=== PATIENT | female | born 1995 | race Two or more races ===

== ENCOUNTER 2017-09-21 05:05 | Emergency (ER) | payer OTHER ==
--- NOTE | 2017-09-21 05:32 | ER Document Report ---
Doctor's Note Notes: 09/21/17 05:31 I performed a quick triage evaluation the patient. Patient is 21 weeks presents with complaint of sensation that she feels that her right arm and hand are tight and she has pain that radiates from her wrist down her forearm and also some tingling into her fingers. She says affects all her fingers. On exam she has good pulses good capillary refill she is able to flex and extend her fingers but is hesitant to fully close her fist. 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 I suspect this most likely has -induced carpal tunnel however her right arm circumference does appear to be a little larger than the left and therefore I will order venous Doppler of the right arm.
--- NOTE | 2017-09-21 06:57 | ER Document Report ---
ED Hand/Wrist Injury - General Chief Complaint: Hand Pain Stated Complaint: ARM/HAND PAIN Time Seen by Provider: 09/21/17 06:19 Information source: Patient Notes: HPI-22 years old female presents today with pain and swelling over the right wrist hand and forearm, with a history of 21 week . 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 Has no history of any carpal tunnel syndrome but last few weeks when when she sleeps has to wake up frequently with numbness and tingling sensation over the right hand which resolves after shaking the hand. Associated with the pain. REVIEW OF SYSTEMS: CONSTITUTIONAL : Denies fever, chills, or sweats. Denies recent illness. EENT: Denies eye, ear, throat, or mouth pain or symptoms. Denies nasal or sinus congestion or discharge. Denies throat, tongue, or mouth swelling or difficulty swallowing. CARDIOVASCULAR: Denies chest pain. Denies palpitations or racing or irregular heart beat. Denies ankle edema. RESPIRATORY: Denies cough, cold, or chest congestion. Denies shortness of breath, difficulty breathing, or wheezing. GASTROINTESTINAL: Denies abdominal pain or distention. Denies nausea, vomiting , or diarrhea. Denies blood in vomitus, stools, or per rectum. Denies black, tarry stools. Denies constipation. GENITOURINARY: Denies difficulty urinating, painful urination, burning, frequency, blood in urine, or discharge. FEMALE GENITOURINARY: Denies vaginal bleeding, heavy or abnormal periods, irregular periods. Denies vaginal discharge or odor. MUSCULOSKELETAL: Denies back or neck pain or stiffness. Denies joint pain or swelling. SKIN: Denies rash, lesions or sores. HEMATOLOGIC : Denies easy bruising or bleeding. LYMPHATIC: Denies swollen, enlarged glands. NEUROLOGICAL: Denies confusion or altered mental status. Denies passing out or loss of consciousness. Denies dizziness or lightheadedness. Denies headache. Denies weakness or paralysis or loss of use of either side. Denies problems with gait or speech. Denies sensory loss, numbness, or tingling. Denies seizures. PSYCHIATRIC: Denies anxiety or stress. Denies depression, suicidal ideation, or homicidal ideation. ALL OTHER SYSTEMS REVIEWED AND NEGATIVE. PHYSICAL EXAMINATION: GENERAL: Well-appearing, well-nourished and in no acute distress. HEAD: Atraumatic, normocephalic. EYES: Pupils equal round and reactive to light, extraocular movements intact, conjunctiva are normal. ENT: Nares patent, oropharynx clear without exudates. Moist mucous membranes. NECK: Normal range of motion, supple without lymphadenopathy LUNGS: Breath sounds clear to auscultation bilaterally and equal. No wheezes rales or rhonchi. HEART: Regular rate and rhythm without murmurs ABDOMEN: Soft, nontender, nondistended abdomen. No guarding, no rebound. No masses appreciated. Female : deferred Musculoskeletal: Normal range of motion, no pitting or edema. No cyanosis. NEUROLOGICAL: Cranial nerves grossly intact. Normal speech, normal gait. Normal sensory, motor exams PSYCH: Normal mood, normal affect. SKIN: Warm, Dry, normal turgor, no rashes or lesions noted. Dictation was performed using [employer] voice recognition software TRAVEL OUTSIDE OF THE [place] IN LAST 30 DAYS: No - HPI Patient complains to provider of: Dictated above - Related Data Allergies/Adverse Reactions: vancomycin Allergy (Verified 09/21/17 05:18) Past Medical History - General Information source: Patient - Social History Smoking Status: Never Smoker Frequency of alcohol use: None Drug Abuse: None Lives with: Family Family History: Reviewed & Not Pertinent Patient has suicidal ideation: No Patient has homicidal ideation: No - Past Medical History Cardiac Medical History: Reports: None Pulmonary Medical History: Reports: None Renal/ Medical History: Reports: None. Denies: Hx Peritoneal Dialysis Malignancy Medical History: Reports: None Review of Systems - Review of Systems Notes: Dictated above Physical Exam - Vital signs Vitals: Temp Pulse Resp BP Pulse Ox 98.0 F 94 18 129/56 H 98 09/21/17 05:10 09/21/17 05:10 09/21/17 05:10 09/21/17 05:10 09/21/17 05:10 Course - Re-evaluation Re-evalutation: 09/21/17 09:54 Patient remained stable, - Vital Signs Vital signs: Temp Pulse Resp BP Pulse Ox 98.0 F 94 18 129/56 H 98 09/21/17 05:10 09/21/17 05:10 09/21/17 05:10 09/21/17 05:10 09/21/17 05:10 - Diagnostic Test Radiology reviewed: Reports reviewed - Venous Doppler shows no DVT Discharge - Discharge Clinical Impression: Carpal tunnel syndrome of right wrist Condition: Fair Disposition: HOME, SELF-CARE Instructions: Carpal Tunnel Syndrome ([facility])
--- NOTE | 2017-09-21 09:41 | RADIOLOGY REPORT (SQ) ---
EXAM DESCRIPTION: VENOUS UNILATERAL UPPER COMPLETED DATE/TIME: 09/21/2017 9:32 am REASON FOR STUDY: right arm COMPARISON: None. TECHNIQUE: Dynamic and static ramos scale and color images acquired of the right arm venous system. S elected spectral images acquired with additional compression and augmentation maneuvers. The contrala teral subclavian vein and internal jugular vein were also imaged. Images stored on PACS. LIMITATIONS: None. FINDINGS: INTERNAL JUGULAR VEIN: Normal phasicity, compression, augmentation. No visualized echogeni c material on ramos scale. No defects on color images. Comparison opposite side normal. SUBCLAVIAN VEIN: Normal compression, augmentation. No visualized echogenic material on ramos scale. No defects on color images. AXILLARY VEIN: Normal compression, augmentation. No visualized echogenic material on ramos scale. No d efects on color images. BRACHIAL VEIN: Normal compression, augmentation. No visualized echogenic material on ramos scale. No d efects on color images. BASILIC VEIN: Normal compression, augmentation. No visualized echogenic material on ramos scale. No de fects on color images. CEPHALIC VEIN: Normal compression, augmentation. No visualized echogenic material on ramos scale. No d efects on color images. OTHER: No other significant finding. CONTRALATERAL SUBCLAVIAN VEIN AND INTERNAL JUGULAR VEIN: Normal phasicity, compression and augmentation. No visualized echogenic material on ramos scale. No de fects on color images. IMPRESSION: NO EVIDENCE DVT OR SVT IN THE RIGHT ARM. TECHNICAL DOCUMENTATION: JOB ID: [id number] [employer]- All Rights Reserved Reading location - IP/workstation name: [email or web address]
[2017-09-21 10:18] VITALS: BP 115/66
== END 2017-09-21 10:20 | disposition home or self-care (01) ==
LOC: ER 05:05
DX: G56.01 Carpal tunnel syndrome, right upper limb (principal); Z88.1 Allergy status to other antibiotic agents
CPT/HCPCS: 93971; 99284